=== PATIENT | male | born 2000 | race Caucasian/White ===

== ENCOUNTER 2021-12-05 15:29 | Emergency (ER) | payer OTHER, SELFPAY ==
[2021-12-05] MEDS ORDERED: Bupivacaine 0.5% 10 ML VIAL ONE (15:40)
[2021-12-05] MEDS ORDERED: Lidocaine 1% (PF) 30 ML VIAL ONE (15:40)
[2021-12-05] MEDS ORDERED: Boostrix 0.5 ML (Tdap) VIAL ONE (15:52)
== END 2021-12-05 18:35 | disposition short-term general hospital (02) ==
LOC: ERS 15:29
DX: S68.124A Partial traumatic metacarpophalangeal amputation of right ring finger, initial encounter (principal); F17.290 Nicotine dependence, other tobacco product, uncomplicated; W23.0XXA Caught, crushed, jammed, or pinched between moving objects, initial encounter; Y92.69 Other specified industrial and construction area as the place of occurrence of the external cause
CPT/HCPCS: 64450; 90471; 90715; J2001; J3490